=== PATIENT | male | born 1985 | race Caucasian/White ===

== ENCOUNTER 2019-03-24 11:18 | Emergency (ER) | payer OTHER ==
[~2019-03-24] VITALS: Ht 175.3 cm; Wt 83.0 kg
--- NOTE | 2019-03-24 11:21 | ERD ---
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 Someone called 911 to bring him to the hospital. He has been drinking, denies auditory/visual examination, homicidal ideation. He denies doing illicit drug He was put on 5150 by [employer] officers ROS All systems reviewed and are negative except as per history of present illness. Allergies Allergies: Coded Allergies: No Known Allergy (Unverified , 03/24/19) Physical Exam Vitals Vital Signs Date Temp Pulse Resp B/P (MAP) Pulse Ox O2 O2 Flow FiO2 Time Delivery Rate 03/24/19 78 20 131/74 99 Room Air 16:50 (93) 03/24/19 98.6 76 20 138/88 99 14:58 (105) 03/24/19 98.1 87 20 137/91 99 11:39 (106) Physical Exam Const: No acute distress. Head: Atraumatic. Eyes: Normal Conjunctiva. ENT: Normal External Ears, Nose and Mouth. Neck: Full range of motion. No meningismus. Resp: Clear to auscultation bilaterally. Cardio: Regular rate and rhythm. Abd: Soft, non distended, normal bowel sounds, non tender. Skin: No petechiae or rashes. Back: No midline or flank tenderness. Ext: No cyanosis, or edema. Neur: Awake and alert. No focal deficit Psych: Intoxicated, suicidal Result Diagram: 03/24/19 1141 03/24/19 1141 Results 24 hrs Laboratory Tests Test 03/24/19 11:40 03/24/19 11:41 03/24/19 17:27 Ethyl Alcohol Level 244.0 mg/dl 254.0 mg/dl 157.0 mg/dl White Blood Count 13.0 10^3/ul Red Blood Count 5.43 10^6/ul Hemoglobin 15.9 g/dl Hematocrit 47.7 % Mean Corpuscular Volume 87.8 fl Mean Corpuscular Hemoglobin 29.3 pg Mean Corpuscular 33.3 g/dl Hemoglobin Concent Red Cell Distribution Width 12.8 % Platelet Count 240 10^3/UL Mean Platelet Volume 9.8 fl Immature Granulocytes % 0.400 % Neutrophils % 71.6 % Lymphocytes % 21.4 % Monocytes % 6.0 % Eosinophils % 0.1 % Basophils % 0.5 % Nucleated Red Blood Cells % 0.0 /100WBC Immature Granulocytes # 0.050 10^3/ul Neutrophils # 9.3 10^3/ul Lymphocytes # 2.8 10^3/ul Monocytes # 0.8 10^3/ul Eosinophils # 0.0 10^3/ul Basophils # 0.1 10^3/ul Nucleated Red Blood Cells # 0.0 10^3/ul Sodium Level 148 mmol/L Potassium Level 4.2 mmol/L Chloride Level 110 mmol/L Carbon Dioxide Level 26 mmol/L Anion Gap 12 Blood Urea Nitrogen 5 mg/dl Creatinine 0.93 mg/dl Est Glomerular Filtrat > 60 mL/min Rate mL/min Glucose Level 98 mg/dl Calcium Level 8.8 mg/dl Total Bilirubin 0.3 mg/dl Direct Bilirubin 0.00 mg/dl Indirect Bilirubin 0.3 mg/dl Aspartate Amino Transf (AST/SGOT) 19 IU/L Alanine 20 IU/L Aminotransferase (ALT/SGPT) Alkaline Phosphatase 59 IU/L Total Protein 8.3 g/dl Albumin 4.6 g/dl Globulin 3.70 g/dl Albumin/Globulin Ratio 1.24 Salicylates Level < 1.0 mg/dl Acetaminophen Level < 10.0 ug/ml Urine Color YELLOW Urine Clarity CLEAR Urine pH 6.0 Urine Specific [place] 1.020 Urine Ketones NEGATIVE mg/dL Urine Nitrite NEGATIVE mg/dL Urine Bilirubin NEGATIVE mg/dL Urine Urobilinogen NEGATIVE mg/dL Urine Leukocyte Esterase NEGATIVE Geno/ul Urine Hemoglobin NEGATIVE mg/dL Urine Glucose NEGATIVE mg/dL Urine Total Protein NEGATIVE mg/dl Urine Opiates Screen Negative Urine Barbiturates Negative Urine Amphetamines Screen Negative Urine Benzodiazepines Screen Negative Urine Cocaine Screen Positive Urine Cannabinoids Positive Procedures/MDM MEDICAL MAKING DECISION: The patient is a 34-year-old male, presenting to the ER because of acute suicidal ideation, acute alcohol abuse, polysubstance abuse The differential diagnoses considered include but are not limited to drug- induced psychosis, psychosis, decompensated psychiatric illness Consultation: He was evaluated by telepsychiatrist who recommended continuing involuntary hold Departure Diagnosis: Primary Impression: Suicidal ideation Additional Impressions: ETOH abuse Polysubstance abuse Condition: Stable Comments The patient's blood pressure was elevated (>120/80) but appears stable without evidence of hypertension emergency or urgency. The patient was counseled about the risks of hypertension and urged to pursue outpatient monitoring and therapy within a week with their primary care physician. He is clear for psychiatric admission CHAY ANDREWS MD Mar 24, 2019 11:21
[2019-03-24 11:39] VITALS: Ht 175.3 cm; Wt 83.0 kg
--- NOTE | 2019-03-24 16:35 | PSY ---
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 Pt states that his friend/roommate told him that [employer] called 911 though MD was told by nurses that roommate called 911. Pt reports he does not remember what he said. Says no one else was in the car at the time. Denies si. Denies depression. Denies psychosis. Admits to etoh use. Pt reports he does not have a roommate, is homeless. Nurse reports that pt told roommate about si and roommate called 911 Past Psych Hx: - ho psych admits, + ho suicide attempts PMHx: denies meds: none nkda MSE: casually groomed, euthymic, normal speech, cooperative, organized, no delusions no avh denies si/hi IMp: 34 yo male per 5150 reported si, pt reports it was a joke 5150 for further eval; given inconsistency in report of who called 911, it would be critical to call roommate and ask exactly what was said and to whom; if roommate is aware, he would be able to provide hx about what was actually said; right now there is not enough evidence to suggest pt is not acute risk to self given report of recent si, substance use ho suicide attempt Utox For moderate agitation Zyprexa 5mg po prn For severe agitation chlorpromazine 25mg im prn Alcohol withdrawal precautions with CIWA Daily thiamine 100mg po folate 1mg po mvi Allergies: Coded Allergies: No Known Allergy (Unverified , 03/24/19) Psychiatric Objective Eval Mental Status Examination: Laboratory Results Laboratory Tests Test 03/24/19 11:40 03/24/19 11:41 Ethyl Alcohol Level 244.0 mg/dl 254.0 mg/dl White Blood Count 13.0 10^3/ul Red Blood Count 5.43 10^6/ul Hemoglobin 15.9 g/dl Hematocrit 47.7 % Mean Corpuscular Volume 87.8 fl Mean Corpuscular Hemoglobin 29.3 pg Mean Corpuscular Hemoglobin Concent 33.3 g/dl Red Cell Distribution Width 12.8 % Platelet Count 240 10^3/UL Mean Platelet Volume 9.8 fl Immature Granulocytes % 0.400 % Neutrophils % 71.6 % Lymphocytes % 21.4 % Monocytes % 6.0 % Eosinophils % 0.1 % Basophils % 0.5 % Nucleated Red Blood Cells % 0.0 /100WBC Immature Granulocytes # 0.050 10^3/ul Neutrophils # 9.3 10^3/ul Lymphocytes # 2.8 10^3/ul Monocytes # 0.8 10^3/ul Eosinophils # 0.0 10^3/ul Basophils # 0.1 10^3/ul Nucleated Red Blood Cells # 0.0 10^3/ul Sodium Level 148 mmol/L Potassium Level 4.2 mmol/L Chloride Level 110 mmol/L Carbon Dioxide Level 26 mmol/L Anion Gap 12 Blood Urea Nitrogen 5 mg/dl Creatinine 0.93 mg/dl Est Glomerular Filtrat Rate mL/min > 60 mL/min Glucose Level 98 mg/dl Calcium Level 8.8 mg/dl Total Bilirubin 0.3 mg/dl Direct Bilirubin 0.00 mg/dl Indirect Bilirubin 0.3 mg/dl Aspartate Amino Transf (AST/SGOT) 19 IU/L Alanine Aminotransferase (ALT/SGPT) 20 IU/L Alkaline Phosphatase 59 IU/L Total Protein 8.3 g/dl Albumin 4.6 g/dl Globulin 3.70 g/dl Albumin/Globulin Ratio 1.24 Salicylates Level < 1.0 mg/dl Acetaminophen Level < 10.0 ug/ml Assessment and Plan Recommendation/Plan Multiple antipsychotics: No Discharge Disposition: Other Legal Status: Continue involuntary hold VITO CARRINGTON Mar 24, 2019 16:34
[2019-03-24 16:50] VITALS: BP 131/74; PULSE 78; RESP 20
== END 2019-03-24 18:20 | disposition home or self-care (01) ==
LOC: E/R 11:18
DX: F19.10 Other psychoactive substance abuse, uncomplicated (principal); F10.10 Alcohol abuse, uncomplicated
CPT/HCPCS: 80053; 80307; 81003; 85025; Z7502; 99285

== ENCOUNTER 2019-03-24 19:56 | Emergency (ER) | payer OTHER ==
[~2019-03-24] VITALS: Ht 175.3 cm; Wt 85.5 kg
[2019-03-24 20:03] VITALS: Ht 175.3 cm; Wt 85.5 kg
--- NOTE | 2019-03-24 20:31 | ERD ---
ER Documentation Chief Complaint Chief Complaint patient back states he "needs help" denies si. was on 5150 but ran away HPI The patient is a 34-year-old male, return to the ER because he wanted help. He was in the ER earlier, evaluated by telepsychiatrist who recommended 5150 hold. However he eloped from the emergency department. He denies drinking or doing any illicit drug after he left the hospital ROS All systems reviewed and are negative except as per history of present illness. Allergies Allergies: Coded Allergies: No Known Allergy (Unverified , 03/24/19) PMhx/Soc History of Surgery: No Anesthesia Reaction: No Hx Neurological Disorder: No Hx Respiratory Disorders: No Hx Cardiac Disorders: No Hx Psychiatric Problems: Yes (DEPRESSION) Hx Miscellaneous Medical Probl: No Hx Alcohol Use: No Hx Substance Use: Yes Hx Tobacco Use: No Smoking Status: Never smoker Physical Exam Vitals Vital Signs Date Temp Pulse Resp B/P (MAP) Pulse Ox O2 O2 Flow FiO2 Time Delivery Rate 03/24/19 99.0 70 20 130/86 96 20:27 (101) 03/24/19 99.0 89 20 132/76 96 20:03 (94) Physical Exam Const: No acute distress. Head: Atraumatic. Eyes: Normal Conjunctiva. ENT: Normal External Ears, Nose and Mouth. Neck: Full range of motion. No meningismus. Resp: Clear to auscultation bilaterally. Cardio: Regular rate and rhythm. Abd: Soft, non distended, normal bowel sounds, non tender. Skin: No petechiae or rashes. Back: No midline or flank tenderness. Ext: No cyanosis, or edema. Neur: Awake and alert. No focal deficit Psych: Depressed. Results 24 hrs Current Medications Medications Dose Sig/Jaymie Start Time Status Last (Trade) Ordered Route PRN Stop Time Admin Dose Reason Admin Lorazepam 2 mg ONCE ONCE 03/24/19 DC (Ativan) PO 21:00 03/24/19 21:01 Procedures/MDM MEDICAL MAKING DECISION: The patient is a 34-year-old male, presenting with acute suicidal ideation, acute polysubstance abuse, acute alcohol abuse The differential diagnoses considered include but are not limited to drug- induced psychosis, psychosis, decompensated psychiatric illness Departure Diagnosis: Primary Impression: Suicidal ideation Additional Impressions: Polysubstance abuse ETOH abuse Condition: Stable Comments The patient's blood pressure was elevated (>120/80) but appears stable without evidence of hypertension emergency or urgency. The patient was counseled about the risks of hypertension and urged to pursue outpatient monitoring and therapy within a week with their primary care physician. He is cleared for psychiatric admission CHAY ANDREWS MD Mar 24, 2019 20:31
[2019-03-24] MEDS ORDERED: LORAZEPAM 1 MG TAB PO ONE (21:00)
[2019-03-24 23:45] VITALS: BP 129/74; PULSE 68; RESP 18
== END 2019-03-25 00:01 ==
LOC: E/R 19:56
DX: F19.10 Other psychoactive substance abuse, uncomplicated (principal); F10.10 Alcohol abuse, uncomplicated
CPT/HCPCS: Z7502; Z7610